=== PATIENT | male | born 1990 | race Caucasian/White ===

== ENCOUNTER 2018-04-12 20:32 | Emergency (ER) | payer SELFPAY ==
[~2018-04-12] VITALS: Ht 165.1 cm; Wt 100.0 kg
[2018-04-12 21:30] VITALS: BP 123/63
[2018-04-12] MEDS ORDERED: FAMOTIDINE 20 MG TABLET PO ONE (22:30)
[2018-04-12] MEDS ORDERED: ONDANSETRON ODT 4 MG PO ONE (22:30)
== END 2018-04-12 22:46 | disposition left against medical advice (07) ==
LOC: ED 22:40
DX: F10.129 Alcohol abuse with intoxication, unspecified (principal); S00.81XA Abrasion of other part of head, initial encounter; S69.91XA Unspecified injury of right wrist, hand and finger(s), initial encounter; R11.10 Vomiting, unspecified; X58.XXXA Exposure to other specified factors, initial encounter; Y93.89 Activity, other specified; Y99.8 Other external cause status; Y92.89 Other specified places as the place of occurrence of the external cause
CPT/HCPCS: 99281